=== PATIENT | female | born 1995 | race Caucasian/White ===

== ENCOUNTER 2016-11-23 04:39 | Emergency (ER) | payer OTHER ==
[~2016-11-23 04:39] MED LIST: BENZ1 PO; CARB100C PO; HALO1TAB25 PO
== END 2016-11-23 15:00 | disposition left against medical advice (07) ==
LOC: NEPF 04:39
DX: R68.89 Other general symptoms and signs (principal)
CPT/HCPCS: 99281

== ENCOUNTER 2016-12-16 08:35 | Emergency (ER) | payer OTHER ==
[~2016-12-16] VITALS: Ht 177.8 cm; Wt 92.0 kg
[2016-12-16 08:37] VITALS: BP 129/74; PULSE 56; RESP 20; TEMP 97.9; O2SAT 99
== END 2016-12-16 09:13 | disposition left against medical advice (07) ==
LOC: NEPB 08:35
DX: Z03.89 Encounter for observation for other suspected diseases and conditions ruled out (principal)
CPT/HCPCS: 99281

== ENCOUNTER 2016-12-17 18:38 | Inpatient (IN) | payer OTHER ==
[~2016-12-17] VITALS: Ht 177.8 cm; Wt 99.4 kg
[2016-12-17 18:45] VITALS: BP 135/94; PULSE 112; RESP 20; TEMP 98.2; O2SAT 98
[2016-12-17] MEDS ORDERED: diphenhydrAMINE HCL 50 MG/ML VIAL IM ONE (19:45)
[2016-12-17] MEDS ORDERED: LORazepam 2 MG/ML VIAL IM ONE (19:45)
[2016-12-17 19:46] LABS: AUTOMATED NEUTROPHIL # 12.1 TH/MM3 (1.8-7.7); BASOPHIL # 0.1 TH/MM3 (0-0.2); BASOPHIL % 0.7 % (0.0-2.0); EOSINOPHIL # 0.2 TH/MM3 (0-0.4); HEMATOCRIT 42.7 % (35.0-46.0); LYMPH % 16.7 % (9.0-44.0); LYMPHOCYTE # 2.7 TH/MM3 (1.0-4.8); MEAN CELL VOLUME 85.2 FL (80.0-100.0); MEAN CORPUSCULAR HGB CONC 32.9 % (32.0-36.0); MONO % 6.7 % (0.0-8.0); NEUT % 74.9 % (16.0-70.0); PLATELET COUNT 265 TH/MM3 (150-450); RED BLOOD COUNT 5.01 MIL/MM3 (4.00-5.30); RED CELL DISTRIBUTION WIDTH 13.9 % (11.6-17.2); WHITE BLOOD COUNT 16.2 TH/MM3 (4.0-11.0)
[2016-12-17 19:47] LABS: AMPHETAMINE, URINE NEG (NEG); BARBITURATES, URINE NEG (NEG); COCAINE, URINE NEG (NEG)
[2016-12-17 19:57] VITALS: BP 187/78; PULSE 127; RESP 24; O2SAT 98
[2016-12-17 20:04] LABS: ANION GAP 11 MEQ/L (5-15); BICARBONATE 19.1 MEQ/L (21.0-32.0); BLOOD UREA NITROGEN 13 MG/DL (7-18); CHLORIDE 109 MEQ/L (98-107); GLOMERULAR FILTRATION RATE 86 ML/MIN (>89); POTASSIUM 4.1 MEQ/L (3.5-5.1); SODIUM (NA) 139 MEQ/L (136-145)
[2016-12-17 20:05] LABS: HEMO FLAGS DIFF FINAL
[2016-12-17] MEDS ORDERED: HALOPERIDOL LACTATE 5 MG/ML AMP IM ONE (20:15)
--- NOTE | 2016-12-17 20:22 | PD ---
HPI . Psychiatric issues Chief Complaint: Psychiatric Symptoms Time Seen by Provider: 18:43 Travel History International Travel<30 days: No Contact w/Intl Traveler<30days: No Traveled to known affect area: No History of Present Illness HPI Patient is brought in by law enforcement with an ex-partite order. The papers indicate that she has a history of bipolar disorder. She is currently manic. She is refusing medications. She is felt to be at risk for her own safety as well as the safety of others. PFSH Past Medical History Bipolar Disorder: Yes Cancer: No (unknown pt not able to elaborate) Implanted Vascular Access Dvce: No Influenza Vaccination: No ?: Not Past Surgical History Surgical History: No Previous Surgery Social History Alcohol Use: Yes (OCCAS. ) Tobacco Use: Yes Substance Use: Yes (MARIJUANA ) Allergies-Medications (Allergen,Severity, Reaction): Coded Allergies: No Known Allergies (Unverified , 12/09/15) Reported Meds & Prescriptions Reported Meds & Active Scripts Active No Active Prescriptions or Reported Medications Review of Systems ROS Limitations: Uncooperative Physical Exam Narrative GENERAL: This is a verbally abusive woman who is throwing things and cursing loudly. SKIN: Warm and dry. HEAD: Atraumatic. Normocephalic. EYES: Pupils equal and round. ENT: No nasal bleeding or discharge. Mucous membranes pink and moist. NECK: Trachea midline. CARDIOVASCULAR: Regular rate and rhythm. RESPIRATORY: No accessory muscle use. GASTROINTESTINAL: Abdomen soft, non-tender, nondistended. MUSCULOSKELETAL: No obvious deformities. No edema. NEUROLOGICAL: Awake and alert. No obvious cranial nerve deficits. Motor grossly within normal limits. Normal speech. PSYCHIATRIC: Angry and impulsive. Poor judgment. Data Data Last Documented VS Vital Signs Date Time Temp Pulse Resp B/P Pulse Ox O2 Delivery O2 Flow Rate FiO2 12/17/16 19:57 127 24 187/78 98 Room Air 12/17/16 18:45 98.2 Orders Complete Blood Count With Diff (12/17/16 18:48) Basic Metabolic Panel (Bmp) (12/17/16 18:48) Psych Screen (12/17/16 18:48) Restraints Non-Violent ALISHA.Q3H (12/17/16 18:48) Drug Screen, Random Urine (12/17/16 18:48) Alcohol (Ethanol) (12/17/16 18:48) Lorazepam Inj (Ativan Inj) (12/17/16 19:45) Diphenhydramine Inj (Benadryl Inj) (12/17/16 19:45) Haloperidol Inj (Haldol Inj) (12/17/16 20:15) Urinalysis - C+S If Indicated (12/17/16 20:16) Labs Laboratory Tests Test 12/17/16 12/17/16 18:55 19:00 White Blood Count 16.2 TH/MM3 Red Blood Count 5.01 MIL/MM3 Hemoglobin 14.0 GM/DL Hematocrit 42.7 % Mean Corpuscular Volume 85.2 FL Mean Corpuscular Hemoglobin 28.0 PG Mean Corpuscular Hemoglobin 32.9 % Concent Red Cell Distribution Width 13.9 % Platelet Count 265 TH/MM3 Mean Platelet Volume 8.3 FL Neutrophils (%) (Auto) 74.9 % Lymphocytes (%) (Auto) 16.7 % Monocytes (%) (Auto) 6.7 % Eosinophils (%) (Auto) 1.0 % Basophils (%) (Auto) 0.7 % Neutrophils # (Auto) 12.1 TH/MM3 Lymphocytes # (Auto) 2.7 TH/MM3 Monocytes # (Auto) 1.1 TH/MM3 Eosinophils # (Auto) 0.2 TH/MM3 Basophils # (Auto) 0.1 TH/MM3 CBC Comment DIFF FINAL Differential Comment Sodium Level 139 MEQ/L Potassium Level 4.1 MEQ/L Chloride Level 109 MEQ/L Carbon Dioxide Level 19.1 MEQ/L Anion Gap 11 MEQ/L Blood Urea Nitrogen 13 MG/DL Creatinine 0.84 MG/DL Estimat Glomerular Filtration 86 ML/MIN Rate Random Glucose 92 MG/DL Calcium Level 9.1 MG/DL Ethyl Alcohol Level LESS THAN 3 MG/DL Urine Opiates Screen NEG Urine Barbiturates Screen NEG Urine Amphetamines Screen NEG Urine Benzodiazepines Screen NEG Urine Cocaine Screen NEG Urine Cannabinoids Screen POS MDM Medical Decision Making Medical Screen Exam Complete: Yes Emergency Medical Condition: Yes Medical Record Reviewed: Yes Differential Diagnosis Differential diagnosis of psychosis includes intoxication, schizophrenia, bipolar disorder Narrative Course Patient presents via law enforcement under an ex-partite order. CBC & BMP Diagram 12/17/16 18:55 Toxicology is positive for marijuana. The patient has been medicated with Ativan and Benadryl followed by Haldol. Patient is now medically clear for psychiatric evaluation. Diagnosis Primary Impression: Bipolar disorder, current episode manic severe with psychotic features Scripts No Active Prescriptions or Reported Meds Condition: Claudia Lawrence MD Dec 17, 2016 20:22
[2016-12-17 20:31] LABS: BLOOD, URINE NEG (NEG); COMMENT (UR) CULT NOT INDICATED; CULTURE IF INDICATED CULT NOT INDICATED; GLUCOSE,URINE NEG (NEG); KETONE, URINE 10 mg/dL (NEG); MUCUS URINE FEW /lpf (OCC); NITRITE,URINE NEG (NEG); PH, URINE 5.5 (5.0-8.5); SQUAMOUS EPITHELIAL CELL URINE 2 /hpf (0-5); URINE COLOR YELLOW (YELLW/STRAW)
[2016-12-17 22:11] VITALS: BP 123/62; PULSE 113; RESP 17; O2SAT 99
[2016-12-18 02:09] VITALS: BP 145/72; PULSE 105; RESP 18; O2SAT 96
[2016-12-18 06:14] VITALS: BP 126/65; PULSE 80; RESP 17; O2SAT 98
[2016-12-18] MEDS ORDERED: OLANZapine IM 10 MG VIAL IM ONE ×2 (10:49→11:15)
[2016-12-18] MEDS ORDERED: LORazepam 2 MG/ML VIAL ONE (10:49)
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
[2016-12-18] MEDS ORDERED: LORazepam 2 MG/ML VIAL IM ONE ×2 (11:15→20:00)
[2016-12-18 13:51] VITALS: BP 133/81; PULSE 72; RESP 18
[2016-12-18] MEDS ORDERED: ALUMINUM/MAGNESIUM/SIMETH 30 ML CUP PO PRN (14:15)
[2016-12-18] MEDS ORDERED: MAGNESIUM HYDROXIDE SUSP 30 ML CUP PO PRN (14:15)
[2016-12-18 18:13] VITALS: BP 157/89; PULSE 98; RESP 18; TEMP 98.6; O2SAT 96
[2016-12-18] MEDS ORDERED: HALOPERIDOL 5 MG TAB PO ONE (20:00)
[2016-12-18] MEDS ORDERED: LORazepam 2 MG TAB PO ONE (20:00)
[2016-12-18] MEDS ORDERED: HALOPERIDOL LACTATE 5 MG/ML AMP IM ONE (20:00)
[2016-12-18] MEDS: ACETAMINOPHEN 325 MG TAB PO PRN (20:06)
[2016-12-19 06:20] VITALS: BP 147/79; PULSE 91; RESP 16; TEMP 98.4; O2SAT 98
[2016-12-19] MEDS: ACETAMINOPHEN 325 MG TAB PO PRN ×2 (06:41→18:28)
[2016-12-19 07:50] LABS: ANION GAP 10 MEQ/L (5-15); BLOOD UREA NITROGEN 14 MG/DL (7-18); CHLORIDE 107 MEQ/L (98-107); GLOMERULAR FILTRATION RATE 86 ML/MIN (>89); POTASSIUM 3.9 MEQ/L (3.5-5.1); SODIUM (NA) 141 MEQ/L (136-145)
[2016-12-19 07:53] LABS: HDL CHOLESTEROL 52.9 MG/DL (40.0-60.0); LDL CHOLESTEROL 68 MG/DL (0-99)
[2016-12-19] MEDS ORDERED: HALOPERIDOL LACTATE 5 MG/ML AMP ONE (11:42)
[2016-12-19] MEDS ORDERED: LORazepam 2 MG/ML VIAL ONE (11:43)
[2016-12-19] MEDS ORDERED: diphenhydrAMINE HCL 50 MG/ML VIAL ONE (11:44)
[2016-12-19] MEDS ORDERED: diphenhydrAMINE HCL 50 MG/ML VIAL IM ONE (12:45)
[2016-12-19] MEDS ORDERED: LORazepam 2 MG/ML VIAL IM ONE (12:45)
[2016-12-19] MEDS ORDERED: HALOPERIDOL LACTATE 5 MG/ML AMP IM ONE (12:45)
[2016-12-19 14:24] LABS: AUTOMATED NEUTROPHIL # 5.2 TH/MM3 (1.8-7.7); BASOPHIL # 0.1 TH/MM3 (0-0.2); BASOPHIL % 0.8 % (0.0-2.0); EOSINOPHIL # 0.3 TH/MM3 (0-0.4); EOSINOPHIL % 3.2 % (0.0-4.0); HEMATOCRIT 40.8 % (35.0-46.0); HEMO FLAGS DIFF FINAL; LYMPH % 31.9 % (9.0-44.0); MEAN CELL VOLUME 85.4 FL (80.0-100.0); MEAN CORPUSCULAR HEMOGLOBIN 27.8 PG (27.0-34.0); MEAN CORPUSCULAR HGB CONC 32.6 % (32.0-36.0); MONO % 8.6 % (0.0-8.0); NEUT % 55.5 % (16.0-70.0); PLATELET COUNT 243 TH/MM3 (150-450); RED BLOOD COUNT 4.77 MIL/MM3 (4.00-5.30); RED CELL DISTRIBUTION WIDTH 13.8 % (11.6-17.2); WHITE BLOOD COUNT 9.4 TH/MM3 (4.0-11.0)
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
--- NOTE | 2016-12-19 16:23 | HHI.PR ---
Blank section for building Consulted by psychiatric services for leukocytosis patient's white blood cell count on initial labs were 16.2 repeat today shows 9.4. Likely stress related Discussed by Dr. Mccracken with Dr. Lynch. The decision to cancel medical consult was made. HCG was ordered and is pending psychiatry to follow up if hCG positive please consult OB If further assistance is needed or patient's condition changes please reconsult. Written by Amy Tapia, acting as scribe for Dr. Mccracken on 12/19/16 at 16:22. Amy Tapia Dec 19, 2016 16:22
[2016-12-19 16:28] LABS: BETA HCG QUANT LESS THAN 1 MIU/ML (0-5)
[2016-12-19] MEDS: DIVALPROEX SODIUM DELAYED RELEASE 250 MG TAB PO SCH ×2 (16:44→21:29)
[2016-12-19 19:44] VITALS: BP 163/76; PULSE 91; RESP 18; TEMP 98.9
[2016-12-20] MEDS: ACETAMINOPHEN 325 MG TAB PO PRN (04:11)
[2016-12-20] MEDS ORDERED: diphenhydrAMINE HCL 25 MG CAP PO ONE (04:45)
[2016-12-20] MEDS ORDERED: LORazepam 2 MG TAB PO ONE (04:45)
[2016-12-20 05:33] VITALS: BP 132/91; PULSE 116; RESP 17; TEMP 97.4; O2SAT 95
[2016-12-20] MEDS: DIVALPROEX SODIUM DELAYED RELEASE 250 MG TAB PO SCH ×2 (08:26→20:23)
[2016-12-20 10:07] LABS: HEMOGLOBIN A1a 0.7 %; HEMOGLOBIN A1b 0.9 %; HEMOGLOBIN Ao 86.3 %; HEMOGLOBIN F 0.7 %; HEMOGLOBIN LA1C 1.9 %; HEMOGLOBIN P3 3.5 %
[2016-12-20] MEDS: BENZOCAINE-MENTHOL (SUGAR FREE) 15 MG-3.6 MG LOZENGE BUCCAL PRN ×2 (11:47→20:24)
[2016-12-20] MEDS: LORazepam 2 MG TAB PO PRN ×2 (12:57→20:23)
[2016-12-20] MEDS ORDERED: LORazepam 2 MG/ML VIAL IM PRN (13:00)
[2016-12-20] MEDS ORDERED: OLANZapine IM 10 MG VIAL IM ONE (16:46)
[2016-12-20] MEDS ORDERED: diphenhydrAMINE HCL 50 MG/ML VIAL ONE (16:47)
[2016-12-20 16:48] VITALS: BP 97/51; PULSE 107; RESP 18; TEMP 98.2; O2SAT 99
[2016-12-20] MEDS ORDERED: LORazepam 2 MG/ML VIAL IM STA (17:00)
[2016-12-20] MEDS ORDERED: OLANZapine IM 10 MG VIAL IM STA (17:01)
[2016-12-20] MEDS ORDERED: diphenhydrAMINE HCL 50 MG/ML VIAL IM STA (17:02)
--- NOTE | 2016-12-20 17:08 | HHI.PYPN ---
Subjective Remarks Patient was seen and case discussed with nursing. This is a second opinion from Dr. Lynch. Patient has been elevated and irritable and received multiple ETO's yesterday. Her behavior had improved until our interview today. Patient was asking about discharge tomorrow morning. Patient was informed she is involuntary now will likely not happen. Patient became irate started slamming herself against the door and received an ETO of Zyprexa, Ativan, Benadryl. She remains labile, disorganized and impulsive Objective Alert: Yes [place]: Person (ox4) Mood: Agitated Affect: Other (angry) Memory Intact: Comment (not tested) Hallucinations: Other (unable to assess) Delusions: No Delusion Type: Other Suicidal: Ideation (deneis) Homicidal: Ideation (not assessed) Insight/Judgement Poor Vitals/IOs Vital Signs Date Time Temp Pulse Resp B/P Pulse Ox O2 Delivery O2 Flow Rate FiO2 12/20/16 16:48 98.2 107 18 97/51 99 12/18/16 13:51 Room Air Assessment & Plan Problem List: (1) Bipolar disorder, current episode manic severe with psychotic features ICD Code: F31.2 Assessment & Plan I agree with first opinion to continue petition, criteria include aggressive and disorganized behavior and mood, we will order one-to-one Justification for Cont. Inpt. Patient will decompensate in a less restrictive setting Lonnie Abarca DO Dec 20, 2016 17:07
[2016-12-21] MEDS: LORazepam 2 MG TAB PO PRN ×3 (01:59→19:02)
[2016-12-21] MEDS: ACETAMINOPHEN 325 MG TAB PO PRN ×2 (03:58→19:05)
[2016-12-21 05:49] VITALS: BP 169/85; PULSE 115; RESP 22; TEMP 97.4; O2SAT 97
[2016-12-21] MEDS: BENZOCAINE-MENTHOL (SUGAR FREE) 15 MG-3.6 MG LOZENGE BUCCAL PRN ×3 (07:15→15:53)
[2016-12-21] MEDS: DIVALPROEX SODIUM DELAYED RELEASE 250 MG TAB PO SCH (09:03)
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
[2016-12-21] MEDS ORDERED: HALOPERIDOL LACTATE 5 MG/ML AMP IM PRN (13:00)
[2016-12-21] MEDS ORDERED: HALOPERIDOL 5 MG TAB PO PRN (13:00)
[2016-12-21] MEDS ORDERED: BENZTROPINE MESYLATE 1 MG TAB PO PRN (13:00)
[2016-12-21] MEDS ORDERED: BENZTROPINE MESYLATE 2 MG/2 ML VIAL IM PRN (13:00)
[2016-12-21 15:26] VITALS: BP 145/67; PULSE 112; RESP 18; TEMP 97.6; O2SAT 97
[2016-12-21 15:46] LABS: INDIRECT BILIRUBIN 0.5 MG/DL (0.0-0.8); TOTAL BILIRUBIN ADULT 0.6 MG/DL (0.2-1.0)
[2016-12-21] MEDS: PADIMATE (CHAPSTICK) 4.5 GM TUBE TOPICAL PRN ×2 (15:50→18:42)
[2016-12-21] MEDS: risperiDONE 1 MG TAB PO SCH (20:35)
[2016-12-21] MEDS: DIVALPROEX SODIUM E.R. 500 MG TAB PO SCH (20:35)
[2016-12-22] MEDS: ZOLPIDEM TARTRATE 5 MG TAB PO PRN ×2 (00:08→20:35)
[2016-12-22] MEDS: LORazepam 2 MG TAB PO PRN ×3 (03:45→15:58)
[2016-12-22 04:00] VITALS: BP 161/69; PULSE 114; RESP 18; TEMP 97.6; O2SAT 98
[2016-12-22 05:38] VITALS: BP 161/69; PULSE 114; RESP 18; TEMP 97.6; O2SAT 98
[2016-12-22 05:57] VITALS: BP 145/89; PULSE 92
[2016-12-22] MEDS: PADIMATE (CHAPSTICK) 4.5 GM TUBE TOPICAL PRN (07:21)
[2016-12-22] MEDS: BENZOCAINE-MENTHOL (SUGAR FREE) 15 MG-3.6 MG LOZENGE BUCCAL PRN (07:22)
[2016-12-22] MEDS: DIVALPROEX SODIUM E.R. 500 MG TAB PO SCH ×2 (09:02→20:35)
[2016-12-22] MEDS: risperiDONE 1 MG TAB PO SCH ×2 (09:02→20:35)
--- NOTE | 2016-12-22 09:28 | HHI.PYPN ---
Subjective Remarks Patient seen and examined with counselor. Chart reviewed. Case discussed with nurse, counselor and recreation therapist in treatment team. Per nursing staff , patient is behavioral, singing inappropriately, disinhibited, and somewhat medication seeking for Ativan. On my examination today, the patient is discharge focused. She is dramatic, emotionally labile, and easily agitated. Speech is pressured. She minimizes the circumstances of her presentation here as well as her behavior on the unit so far. Her insight into mental illness is extremely poor. Sleep remains poor. No side effects from medications. Review of Systems ROS Limitations: Psychotic, Poor Historian Other No physical complaints today. Objective Alert: Yes [place]: Person, Place Mood: Agitated (remains easily agitated), Anxious, Oppositional Affect: Labile (remains quite labile) Memory Intact: Comment (Not formally assessed) Hallucinations: Other (No AVH) Delusions: Yes Delusion Type: Grandiose, Paranoid Suicidal: Ideation (No SI but remains unreliable to contract for safety) Homicidal: Ideation (No HI but is unreliable to contract for safety.) Insight/Judgement Poor Remarks No motoric abnormalities noted. Thought process with loosening of associations. Speech pressured and rambling. Grooming and hygiene fair at best. Labs Test 12/21/16 14:50 Total Bilirubin 0.6 MG/DL Direct Bilirubin 0.1 MG/DL Indirect Bilirubin 0.5 MG/DL Aspartate Amino Transf 23 U/L (AST/SGOT) Alanine Aminotransferase 28 U/L (ALT/SGPT) Alkaline Phosphatase 72 U/L Total Protein 7.9 GM/DL Albumin 4.3 GM/DL Labs reviewed. LFTs within normal limits. Vitals/IOs Vital Signs Date Time Temp Pulse Resp B/P Pulse Ox O2 Delivery O2 Flow Rate FiO2 12/22/16 05:57 92 145/89 12/22/16 05:38 97.6 18 98 12/18/16 13:51 Room Air Assessment & Plan Problem List: (1) Bipolar disorder, current episode manic severe with psychotic features ICD Code: F31.2 (2) Marijuana abuse ICD Code: F12.10 Assessment & Plan Titrate Risperdal for psychosis and secondarily for mood stabilization. Continue oral loading with Depakote. I would like to see if the increased dose of Risperdal helps the patient's sleep this evening and do not want to overly sedate her by simultaneously titrating her Ambien, but we could consider titrating to the larger dose of Ambien tomorrow evening if sleep remains elusive for the patient. Continue to monitor on the inpatient psychiatric unit. I have reviewed the patient's level of observation and although she remains manic there has been no evidence of suicidality or homicidality to necessitate ongoing one-to-one and so I will place her on close observation in line of sight of staff instead with low threshold to return to one-to-one if needed. She is also in a camera room. Continue other medications and care as ordered. Justification for Cont. Inpt. Impairment in reality construction. Impairment in social functioning. Medication changes in process. High risk for decompensation in a lower level of care. Discharge Planning Pending psychiatric stabilization. Request HC Surrog/Guard Advoc?: Yes Rm Mccain MD Dec 22, 2016 09:28
[2016-12-22] MEDS: ACETAMINOPHEN 325 MG TAB PO PRN (16:01)
[2016-12-22 18:11] VITALS: BP 131/75; PULSE 93; RESP 18; TEMP 98.4; O2SAT 99
[2016-12-23 05:19] VITALS: BP 149/77; PULSE 98; RESP 18; TEMP 98.4; O2SAT 97
[2016-12-23] MEDS: DIVALPROEX SODIUM E.R. 500 MG TAB PO SCH ×2 (08:45→20:01)
[2016-12-23] MEDS: risperiDONE 1 MG TAB PO SCH (08:45)
[2016-12-23] MEDS: BENZOCAINE-MENTHOL (SUGAR FREE) 15 MG-3.6 MG LOZENGE BUCCAL PRN ×2 (08:53→13:04)
[2016-12-23] MEDS: PADIMATE (CHAPSTICK) 4.5 GM TUBE TOPICAL PRN (08:53)
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
[2016-12-23] MEDS: NICOTINE 14 MG/24 HR PATCH TD SCH (09:32)
[2016-12-23] MEDS ORDERED: risperiDONE EXT REL INJ 25 MG/2 ML VIAL IM ONE (09:45)
[2016-12-23] MEDS: IBUPROFEN 800 MG TAB PO PRN (13:03)
[2016-12-23] MEDS: LORazepam 2 MG TAB PO PRN (14:41)
[2016-12-23 19:24] VITALS: BP 140/77; PULSE 88; RESP 16; TEMP 98.7
[2016-12-23] MEDS: risperiDONE 3 MG TAB PO SCH (20:01)
[2016-12-23] MEDS: REMOVE OLD NICODERM (NICOTINE) PATCH TD SCH (21:00)
[2016-12-23] MEDS: ZOLPIDEM TARTRATE 10 MG TAB PO PRN (21:11)
[2016-12-24] MEDS: IBUPROFEN 800 MG TAB PO PRN ×3 (05:31→17:34)
[2016-12-24 05:55] VITALS: BP 126/74; PULSE 97; RESP 18; TEMP 98.1
[2016-12-24] MEDS: DIVALPROEX SODIUM E.R. 500 MG TAB PO SCH ×2 (08:22→20:09)
[2016-12-24] MEDS: NICOTINE 14 MG/24 HR PATCH TD SCH (08:22)
[2016-12-24] MEDS: risperiDONE 3 MG TAB PO SCH ×2 (08:22→20:09)
[2016-12-24] MEDS: LORazepam 2 MG TAB PO PRN ×2 (10:51→20:09)
--- NOTE | 2016-12-24 12:42 | HHI.PYPN ---
Subjective Remarks Patient seen and case discussed with nursing staff. Chart reviewed. Per nursing staff, patient has been no behavioral problem overnight. For me today, patient is somewhat tearful and labile but generally calmer. No evident side effects from medications. Patient's case was presented to the Early act court and the patient was retained by the clinical trials specialist on the inpatient psychiatric unit. Soil Science Teacher has also recommended that we consider involuntary outpatient commitment for this patient. Review of Systems Other no reported physical complaints Objective Alert: Yes [place]: Person, Place (at least) Mood: Other (calmer) Affect: Labile Memory Intact: Comment (Not formally assessed) Hallucinations: Other (None) Delusions: No Delusion Type: Other (no kunal delusions) Suicidal: Ideation (no SI voiced) Homicidal: Ideation (no HI voiced) Insight/Judgement Poor Remarks No abnormal motor movements noted Labs Test 12/24/16 07:32 Ammonia 19 MCMOL/L Valproic Acid (Depakene) Level 98 MCG/ML Labs reviewed. Depakote level within the therapeutic range and ammonia level was not elevated. Vitals/IOs Vital Signs Date Time Temp Pulse Resp B/P Pulse Ox O2 Delivery O2 Flow Rate FiO2 12/24/16 05:55 98.1 97 18 126/74 12/23/16 05:19 97 Assessment & Plan Problem List: (1) Bipolar disorder, current episode manic severe with psychotic features ICD Code: F31.2 (2) Marijuana abuse ICD Code: F12.10 Assessment & Plan Continue Risperdal 3mg BID supplementing Risperdal Consta, which patient received yesterday. Continue Depakote as ordered. Continue other medications and care as ordered. I will initiate a petition for involuntary outpatient commitment and consult for a second opinion. Justification for Cont. Inpt. Risk for decompensation pending psychiatric stabilization Discharge Planning My plan for this patient would be to retain her on the inpatient psychiatric unit for further stabilization with plans for her to enter into the outpatient commitment program. Hope would be to get the petition for outpatient commitment on the docket for next , 12/31. Request HC Surrog/Guard Advoc?: Yes Rm Mccain MD Dec 24, 2016 12:42
[2016-12-24 19:28] VITALS: BP 156/92; PULSE 102; RESP 18; TEMP 98.3; O2SAT 98
[2016-12-24] MEDS: REMOVE OLD NICODERM (NICOTINE) PATCH TD SCH (20:29)
[2016-12-24] MEDS: ZOLPIDEM TARTRATE 10 MG TAB PO PRN (21:23)
[2016-12-25 05:25] VITALS: BP 108/57; PULSE 88; RESP 18; TEMP 97.4; O2SAT 99
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
[2016-12-25] MEDS: DIVALPROEX SODIUM E.R. 500 MG TAB PO SCH ×2 (08:40→21:50)
[2016-12-25] MEDS: risperiDONE 3 MG TAB PO SCH ×2 (08:40→21:50)
[2016-12-25] MEDS: NICOTINE 14 MG/24 HR PATCH TD SCH ×2 (09:00→16:04)
[2016-12-25] MEDS: LORazepam 2 MG TAB PO PRN ×3 (09:09→21:50)
--- NOTE | 2016-12-25 13:31 | HHI.PYPN ---
Subjective Remarks Found sleeping in bed. Complains of fatigue. Appears somewhat irritable. Review of Systems ROS Limitations: Clinical Condition Except as stated in HPI: all other systems reviewed are Neg Objective Alert: Yes [place]: Person, Place (at least) Mood: Other (calmer) Affect: Labile Memory Intact: Comment (Not formally assessed) Hallucinations: Other (None) Delusions: No Delusion Type: Other (no kunal delusions) Suicidal: Ideation (no SI voiced) Homicidal: Ideation (no HI voiced) Insight/Judgement Remain impaired. Vitals/IOs Vital Signs Date Time Temp Pulse Resp B/P Pulse Ox O2 Delivery O2 Flow Rate FiO2 12/25/16 05:25 97.4 88 18 108/57 99 Assessment & Plan Problem List: (1) Bipolar disorder, current episode manic severe with psychotic features ICD Code: F31.2 (2) Marijuana abuse ICD Code: F12.10 Assessment & Plan Estimated LOS: days Justification for Cont. Inpt. Unable to contract for safety. Request HC Surrog/Guard Advoc?: Yes Khoa Guevara MD Dec 25, 2016 13:31
[2016-12-25 19:28] VITALS: BP 120/57; PULSE 85; RESP 14; TEMP 98.2; O2SAT 98
[2016-12-25] MEDS: REMOVE OLD NICODERM (NICOTINE) PATCH TD SCH (21:00)
[2016-12-25] MEDS: ZOLPIDEM TARTRATE 10 MG TAB PO PRN (21:50)
[2016-12-26 06:29] VITALS: BP 119/59; PULSE 100; RESP 18; TEMP 98.4; O2SAT 98
[2016-12-26] MEDS: DIVALPROEX SODIUM E.R. 500 MG TAB PO SCH ×2 (09:08→20:03)
[2016-12-26] MEDS: risperiDONE 3 MG TAB PO SCH ×2 (09:08→20:03)
[2016-12-26] MEDS: NICOTINE 14 MG/24 HR PATCH TD SCH (09:10)
[2016-12-26] MEDS: LORazepam 2 MG TAB PO PRN ×2 (13:21→20:03)
--- NOTE | 2016-12-26 18:27 | HHI.PYPN ---
Subjective Remarks Pt seen and discussed with staff. She remains labile and easily agitated. She demands discharge home on Wednesday and states that she is going to be allowed to come back from court. She goes on a rambling rant about [facility] not being approved "for stabilization." No medication side effects. Review of Systems Psychiatric: COMPLAINS OF: Mood changes, Agitation Objective Alert: Yes [place]: Person, Place (at least) Mood: Other (calmer) Affect: Labile Memory Intact: Comment (Not formally assessed) Hallucinations: Other (None) Delusions: No Delusion Type: Other (no kunal delusions) Suicidal: Ideation (no SI voiced) Homicidal: Ideation (no HI voiced) Insight/Judgement poor Vitals/IOs Vital Signs Date Time Temp Pulse Resp B/P Pulse Ox O2 Delivery O2 Flow Rate FiO2 12/26/16 06:29 98.4 100 18 119/59 98 Assessment & Plan Problem List: (1) Bipolar disorder, current episode manic severe with psychotic features ICD Code: F31.2 (2) Marijuana abuse ICD Code: F12.10 Assessment & Plan Continue current tx plan. Estimated LOS: days Justification for Cont. Inpt. impairments in social functioning Request HC Surrog/Guard Advoc?: Yes Joy Rivera MD Dec 26, 2016 18:27
[2016-12-26 18:35] VITALS: BP 133/77; RESP 18; TEMP 98.5; O2SAT 93
[2016-12-26] MEDS: REMOVE OLD NICODERM (NICOTINE) PATCH TD SCH (21:00)
[2016-12-26] MEDS: ZOLPIDEM TARTRATE 10 MG TAB PO PRN (22:41)
[2016-12-27 06:29] VITALS: BP 121/61; RESP 18; TEMP 96.7; O2SAT 98
[2016-12-27] MEDS: DIVALPROEX SODIUM E.R. 500 MG TAB PO SCH ×2 (08:35→21:24)
[2016-12-27] MEDS: risperiDONE 3 MG TAB PO SCH ×2 (08:35→21:24)
[2016-12-27] MEDS: NICOTINE 14 MG/24 HR PATCH TD SCH (08:36)
[2016-12-27] MEDS: LORazepam 2 MG TAB PO PRN (09:29)
[2016-12-27] MEDS: IBUPROFEN 800 MG TAB PO PRN (13:06)
[2016-12-27 18:00] VITALS: BP 166/105; PULSE 91; RESP 18; TEMP 97.6
[2016-12-27] MEDS: REMOVE OLD NICODERM (NICOTINE) PATCH TD SCH (21:00)
[2016-12-27] MEDS: ZOLPIDEM TARTRATE 10 MG TAB PO PRN (21:24)
--- NOTE | 2016-12-27 22:00 | HHI.PYPN ---
Subjective Remarks Pt seen and discussed with staff. Pt has been less labile today. No medication side effects. She denies SI/HI. Objective Alert: Yes [place]: Person, Place, Date, Situation Mood: Other (irritable) Affect: Labile (decreased) Memory Intact: Comment (Not formally assessed) Hallucinations: Other (None) Delusions: No Delusion Type: Other (no kunal delusions) Suicidal: Ideation (no SI voiced) Homicidal: Ideation (no HI voiced) Insight/Judgement poor Vitals/IOs Vital Signs Date Time Temp Pulse Resp B/P Pulse Ox O2 Delivery O2 Flow Rate FiO2 12/27/16 18:00 97.6 91 18 166/105 12/27/16 06:29 98 Assessment & Plan Problem List: (1) Bipolar disorder, current episode manic severe with psychotic features ICD Code: F31.2 (2) Marijuana abuse ICD Code: F12.10 Assessment & Plan Continue current tx plan. Estimated LOS: days Justification for Cont. Inpt. safety Request HC Surrog/Guard Advoc?: Yes Joy Rivera MD Dec 27, 2016 22:00
[2016-12-28] MEDS: LORazepam 2 MG TAB PO PRN ×3 (05:16→22:39)
[2016-12-28] MEDS: BENZOCAINE-MENTHOL (SUGAR FREE) 15 MG-3.6 MG LOZENGE BUCCAL PRN (05:38)
[2016-12-28 06:02] VITALS: BP 119/68; PULSE 84; RESP 18; TEMP 98.3; O2SAT 97
[2016-12-28] MEDS: DIVALPROEX SODIUM E.R. 500 MG TAB PO SCH ×2 (08:46→21:00)
[2016-12-28] MEDS: risperiDONE 3 MG TAB PO SCH ×2 (08:46→21:00)
[2016-12-28] MEDS: NICOTINE 14 MG/24 HR PATCH TD SCH (08:49)
--- NOTE | 2016-12-28 11:08 | HHI.PYPN ---
Subjective Remarks Patient was seen and discussed with the staff developer. Patient was sad and tearful as she wanted to be discharged and go home. Patient claimed that she is willing to do anything take the medication see the counselor and follow-up as an outpatient on a regular basis and not stop the medication. I see that it has been requested the patient be involuntary commitment as an outpatient treatment and has to go to the court next . Patient does not wish to stay here until then. She could be reassured. No behavior or management problem reported but she is labile in her emotions. Continue with the same treatment no side effects were complained she is compliant in taking medication Review of Systems Except as stated in HPI: all other systems reviewed are Neg Psychiatric: COMPLAINS OF: Mood changes, Depression Objective Alert: Yes [place]: Person, Place, Date, Situation Mood: Depressed, Other (wants to go home) Affect: Labile (decreased) Memory Intact: Comment (Not formally assessed but seems intact) Hallucinations: Other (None) Delusions: No Delusion Type: Other (no kunal delusions) Suicidal: Ideation (no SI voiced) Homicidal: Ideation (no HI voiced) Insight/Judgement Fair Vitals/IOs Vital Signs Date Time Temp Pulse Resp B/P Pulse Ox O2 Delivery O2 Flow Rate FiO2 12/28/16 06:02 98.3 84 18 119/68 97 Assessment & Plan Problem List: (1) Bipolar disorder, current episode manic severe with psychotic features ICD Code: F31.2 (2) Marijuana abuse ICD Code: F12.10 Assessment & Plan Estimated LOS: days Justification for Cont. Inpt. Risk of decompensation and monitoring of her behavior Request HC Surrog/Guard Advoc?: Yes Juan Miguel Kevin MD Dec 28, 2016 11:08
[2016-12-28 19:55] VITALS: BP 148/71; PULSE 98; RESP 18; TEMP 97.3; O2SAT 100
[2016-12-28] MEDS: REMOVE OLD NICODERM (NICOTINE) PATCH TD SCH (21:00)
[2016-12-28] MEDS: ZOLPIDEM TARTRATE 10 MG TAB PO PRN (21:31)
[2016-12-29 06:48] VITALS: BP 120/56; PULSE 87; RESP 16; TEMP 97.6; O2SAT 96
[2016-12-29] MEDS: NICOTINE 14 MG/24 HR PATCH TD SCH (09:00)
[2016-12-29] MEDS: risperiDONE 3 MG TAB PO SCH (09:05)
[2016-12-29] MEDS: DIVALPROEX SODIUM E.R. 500 MG TAB PO SCH (09:05)
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
[2016-12-29] MEDS ORDERED: DEPA500T3 PO (13:51)
[2016-12-29] MEDS ORDERED: RISP3 PO (13:51)
== END 2016-12-29 15:40 | disposition home or self-care (01) | DRG 885 ==
LOC: NEPA 18:38 → NEDA 12-18 14:12 → H270 12-18 17:55 → H260 12-24 20:29
PROVIDERS: ADMIT Psychiatry & Neurology Psychiatry; ATTEND Psychiatry & Neurology Psychiatry
DX: F31.2 Bipolar disorder, current episode manic severe with psychotic features (principal); E66.3 Overweight; Z72.0 Tobacco use; Z68.31 Body mass index [BMI] 31.0-31.9, adult; F12.10 Cannabis abuse, uncomplicated
CPT/HCPCS: 80048; 80061; 80076; 80164; 80307; 80320; 81001; 82140; 83036; 84702; 85025; 96372; J0515; J1200; J1630; J2060; J2794; J3230

== ENCOUNTER 2017-01-10 01:36 | Emergency (ER) | payer OTHER ==
[~2017-01-10] VITALS: Ht 177.8 cm; Wt 91.0 kg
[~2017-01-10 01:36] MED LIST changes: -BENZ1 PO; -CARB100C PO; +DEPA500T3 PO; -HALO1TAB25 PO; +RISP3 PO
[2017-01-10 01:42] VITALS: BP 117/85; PULSE 94; RESP 16; TEMP 98.7; O2SAT 100
[2017-01-10] MEDS ORDERED: IBUPROFEN 800 MG TAB PO ONE (02:00)
--- NOTE | 2017-01-10 02:05 | PD ---
HPI Chief Complaint: Cold / Flu Symptoms Time Seen by Provider: 02:03 Travel History International Travel<30 days: No Contact w/Intl Traveler<30days: No Traveled to known affect area: No History of Present Illness HPI 21-year-old white female presents to emergency department with a 2 day history of fever and chills, headache, sore throat, cough, congestion, myalgias, arthralgias and general malaise. She denies any shortness of breath or wheezing. No nausea vomiting. No abdominal pain or diarrhea. No dysuria or frequency. No rash or lesions. Symptoms are moderate. She took ibuprofen last at 5 PM exacerbated by movement and palpation. Some improvement of symptoms with ibuprofen. PFS Past Medical History Narrative Medical Bipolar Bipolar Disorder: Yes Cancer: No Cardiovascular Problems: No Diabetes: No Diminished Hearing: No Endocrine: No Headaches: No Immune Disorder: No Implanted Vascular Access Dvce: No Psychiatric: Yes (bipolar disorder, borderline personality disorder) Reproductive: No Seizures: No Tetanus Vaccination: Unknown Influenza Vaccination: No ?: Not LMP: IUD Past Surgical History Surgical History: No Previous Surgery Social History Alcohol Use: Yes (OCCAS. ) Tobacco Use: Yes Substance Use: Yes (MARIJUANA ) Allergies-Medications (Allergen,Severity, Reaction): Coded Allergies: No Known Allergies (Unverified , 01/10/17) Reported Meds & Prescriptions Reported Meds & Active Scripts Active Risperdal (Risperidone) 3 Mg Tab 3 Mg PO Q12HR 7 Days Depakote ER (Divalproex Sodium) 500 Mg Jolene 1,000 Mg PO BID 7 Days Review of Systems Except as stated in HPI: all other systems reviewed are Neg Physical Exam Narrative GENERAL: Well-developed, well-nourished in no acute distress. Nontoxic appearing. HEAD: Normocephalic, atraumatic. EYES: Pupils equal round and reactive. Extraocular motions intact. No scleral icterus. No injection or drainage. ENT: TMs clear without erythema. The external auditory canals clear. Nose: clear . Posterior pharynx is pink and moist. No tonsillar edema or exudate. Uvula midline. Airway patent. NECK: Trachea midline.Supple, nontender, moves head freely. No central bony tenderness or spasm. CARDIOVASCULAR: Regular rate and rhythm without murmurs, gallops, or rubs. RESPIRATORY: Clear to auscultation. Breath sounds equal bilaterally. No wheezes , rales, or rhonchi. GASTROINTESTINAL: Abdomen soft, non-tender, nondistended. No hepato-splenomegaly , or palpable masses. No guarding. EXTREMITIES: No clubbing, cyanosis, or edema. No joint tenderness, effusion, or edema noted. BACK: Nontender without deformity or crepitance. No flank tenderness. Data Data Last Documented VS Vital Signs Date Time Temp Pulse Resp B/P Pulse Ox O2 Delivery O2 Flow Rate FiO2 01/10/17 01:42 98.7 94 16 117/85 100 Room Air Orders Group A Rapid Strep Screen (01/10/17 02:00) Influenzae A/B Antigen (01/10/17 02:00) Ibuprofen (Motrin) (01/10/17 02:00) Strep Culture (Group A) (01/10/17 02:10) MDM Medical Decision Making Medical Screen Exam Complete: Yes Emergency Medical Condition: Yes Medical Record Reviewed: Yes Interpretation(s) Influenza: Negative Rapid strep: Negative Differential Diagnosis MDM: High Differential diagnoses: Pneumonia, bronchitis, URI, strep throat, influenza Narrative Course Rapid strep and influenza sent. Patient's given Motrin 800 mg by mouth. The influenza and rapid strep are negative. This is influenza-like illness Diagnosis Primary Impression: Influenza-like illness Patient Instructions: General Instructions Departure Forms: Tests/Procedures, Work Release Special Instructions: No work 3 days. Additional Instructions: Rest. Increase fluids. Tylenol and Advil. Robitussin-DM. Followup with your Dr. in one week. Return to the ER for any problems. Med/Other Pt SpecificInfo: No Meds Exist/No RX given Disposition: 01 DISCHARGE HOME Condition: Stable Erasto Markham Jan 10, 2017 02:05
== END 2017-01-10 04:06 | disposition home or self-care (01) ==
LOC: NEPB 01:36
DX: J11.1 Influenza due to unidentified influenza virus with other respiratory manifestations (principal); Z72.0 Tobacco use
CPT/HCPCS: 87081; 87804; 87880; 99283

== ENCOUNTER 2018-03-22 06:49 | Emergency (ER) | payer OTHER ==
[~2018-03-22] VITALS: Ht 177.8 cm; Wt 122.0 kg
[2018-03-22 06:59] VITALS: BP 141/63; PULSE 80; RESP 18; TEMP 98.4; O2SAT 99
[2018-03-22] MEDS ORDERED: AMOXICILLIN/CLAVULANATE K 875 MG TAB PO ONE (07:15)
--- NOTE | 2018-03-22 07:15 | PD ---
HPI Chief Complaint: Bite or Sting Time Seen by Provider: 07:13 Travel History International Travel<30 days: No Contact w/Intl Traveler<30days: No Traveled to known affect area: No History of Present Illness HPI 22-year-old female presents for evaluation of a cat bite to left index finger. She reports a prior to arrival she tried to meat pickler to stray kittens and a bit her on the left index finger. She has mild pain associate with the puncture wound. Aggravated by being bitten. No alleviating factors. she put the cats in a cage when they are currently residing. The patient's last tetanus vaccination was in November. She has no other complaints at this time. PFSH Past Medical History Bipolar Disorder: Yes Cancer: No Cardiovascular Problems: No Diabetes: No Diminished Hearing: No Endocrine: No Headaches: No Immune Disorder: No Implanted Vascular Access Dvce: No Psychiatric: Yes (bipolar disorder, borderline personality disorder) Reproductive: No Seizures: No ?: Not LMP: IUD Social History Alcohol Use: Yes (OCCAS. ) Tobacco Use: Yes Substance Use: Yes (MARIJUANA ) Allergies-Medications (Allergen,Severity, Reaction): Coded Allergies: No Known Allergies (Verified Adverse Reaction, Unknown, 03/22/18) Reported Meds & Prescriptions Reported Meds & Active Scripts Active Augmentin (Amoxicillin-Clavulanate) 875-125 Mg Tab 1 Tab PO BID Risperdal (Risperidone) 3 Mg Tab 3 Mg PO Q12HR 7 Days Depakote ER (Divalproex Sodium) 500 Mg Jolene 1,000 Mg PO BID 7 Days Review of Systems Skin: Positive Other (Puncture wound, pain) Physical Exam Narrative GENERAL: Well-developed well-nourished female no acute distress SKIN: Warm and dry. 2 minor puncture wounds to the finger pad of left index finger. No bleeding. No palpable foreign bodies. CARDIOVASCULAR: Regular rate and rhythm. No murmur appreciated. RESPIRATORY: No accessory muscle use. Clear to auscultation. Breath sounds equal bilaterally. MUSCULOSKELETAL: No obvious deformities. No clubbing. No cyanosis. No edema. Data Data Last Documented VS Vital Signs Date Time Temp Pulse Resp B/P (MAP) Pulse Ox O2 Delivery O2 Flow Rate FiO2 03/22/18 07:17 98.0 88 15 118/72 (87) 100 Room Air Orders Orders Amoxicil-Clavulanate (Augmentin) (03/22/18 07:15) Finger ([id number]) (03/22/18 ) Ed Discharge Order (03/22/18 07:54) MDM Medical Decision Making Medical Screen Exam Complete: Yes Emergency Medical Condition: Yes Medical Record Reviewed: Yes Differential Diagnosis Puncture wound, foreign body, laceration Narrative Course X-ray imaging reveals no foreign bodies. Augmentin administered. She will be discharged with Augmentin. She will fill out and will control paperwork so that the stray animals can be monitored for 10 days to avoid the need for rabies vaccination. Diagnosis Primary Impression: Cat bite Additional Instructions: Wash the wound twice a day with soap and water and apply antibiotic cream. Medication as prescribed. Contact interim control for quarantining of the animals for 10 days. Return for any emergent medical conditions. Med/Other Pt SpecificInfo: Prescription(s) given Scripts Amoxicillin-Clavulanate (Augmentin) 875-125 Mg Tab 1 TAB PO BID for Infection, #10 TAB 0 Refills Prov: Ben Ren MD 03/22/18 Disposition: 01 DISCHARGE HOME Condition: Stable Jerry Walton March 22, 2018 07:15
[2018-03-22 07:17] VITALS: BP 118/72; PULSE 88; RESP 15; TEMP 98; O2SAT 100
[2018-03-22] MEDS ORDERED: AUGM875T3 PO (07:25)
--- NOTE | 2018-03-22 07:50 | RADRPT ---
EXAM DATE: 03/22/2018 7:47 AM EDT AGE/SEX: 22 years / Female INDICATIONS: Feral cat bite to second digit of left hand,small puncture on anterior surface of dista l portion of digit. CLINICAL DATA: This is the patient's initial encounter. Patient reports that signs and symptoms have been present for 1 day and indicates a pain score of 0/10. MEDICAL/SURGICAL HISTORY: None. None. COMPARISON: No prior [facility] exams available for comparison. FINDINGS: Bony structures are intact and in normal alignment. Joints are intact without dislocation or signifi cant arthropathy. Osseous density is normal. Soft tissues are unremarkable. No radiopaque foreign bodies seen. CONCLUSION: 1. No radiopaque foreign bodies or acute fracture. Electronically signed by: Jeovanny Hayward MD 03/22/2018 7:49 AM EDT
[2018-03-22 08:05] VITALS: BP 110/77; TEMP 98
== END 2018-03-22 08:15 | disposition home or self-care (01) ==
LOC: NEPD 06:49
DX: S61.251A Open bite of left index finger without damage to nail, initial encounter (principal); W55.01XA Bitten by cat, initial encounter
CPT/HCPCS: 73140; 99283